=== PATIENT | male | born 1960 | race Caucasian/White ===

== ENCOUNTER 2018-11-19 07:15 | Inpatient (IN) ==
[2018-11-19 08:08] LABS: BASO# 0.01 X1000 (0.0-0.2); BASO% 0.1 % (0.0-0.8); EOS# 0.02 X1000 (0.0-0.7); EOS% 0.2 % (0.0-10.0); HEMATOCRIT 41.1 % (42.0-52.0); HEMOGLOBIN 14.2 g/dL (14.0-18.0); IMM GRAN# 0.03 X1000 (0.0-0.04); IMM GRAN% 0.2 % (0.0-0.5); LYMPH# 1.27 X1000 (1.2-3.4); LYMPH% 9.6 % (20.5-51.1); MCH 29.4 PG (27-31); MCHC 34.5 g/dL (33-37); MCV 85.1 FL (81-99); MONO# 1.67 X1000 (0.11-0.59); MONO% 12.6 % (1.7-9.3); MPV 11.4 FL (7.4-10.4); NEUT# 10.22 X1000 (1.4-6.5); NEUT% 77.3 % (42.2-75.2); PLT 182 X1000 (130-400); RBC 4.83 XMIL (4.7-6.1); RDW 12.6 % (11.5-14.5); WBC 13.22 X1000 (4.8-10.8)
[2018-11-19 08:29] LABS: BILIRUBIN URINE NEGATIVE (NEGATIVE); BLOOD URINE NEGATIVE (NEGATIVE); CLARITY CLEAR (CLEAR); COLOR YELLOW; GLUCOSE URINE NEGATIVE (NEGATIVE); KETONE URINE NEGATIVE (NEGATIVE); LEUKOCYTES URINE NEGATIVE (NEGATIVE); NITRITE URINE NEGATIVE (NEGATIVE); PH URINE 6.5; PROTEIN URINE NEGATIVE (NEGATIVE); URINE SOURCE CLEAN CATCH; UROBILINOGEN URINE NORMAL
[2018-11-19 08:30] LABS: URINE BACTERIA 1+ /HFP; URINE EPITHELIAL CELLS <10 /HPF (<10); URINE RBC <10 /HPF (<10); URINE WBC <10 /HPF (<10)
[2018-11-19 08:35] LABS: AGAP 12; ALBUMIN 4.1 g/dL (3.5-5.0); ALKALINE PHOSPHATASE 69 U/L (32-122); AMYLASE 78 U/L (20-200); BUN 12 mg/dL (8-22); CALCIUM 9.2 mg/dL (8.8-10.2); CHLORIDE 102 mmol/L (98-107); COSMO 275; ESTIMATED GFR > 60; GLUCOSE 117 mg/dL (70-104); GOT 17 U/L (10-34); GPT 18 U/L (10-44); LIPASE 43 U/L (13-60); POTASSIUM 3.8 mmol/L (3.5-5.1); SODIUM 137 mmol/L (136-145); TCO2 24 mmol/L (25-35); TOTAL PROTEIN 7.3 g/dL (6.3-8.3)
--- NOTE | 2018-11-19 10:20 | Diag Imaging Result Doc PS360 ---
EXAM: CT ABD/PELVIS W/PO AND IV CON HISTORY: pain TECHNIQUE: Routine with IV and oral contrast. COMPARISON: None. FINDINGS: The lung bases show atelectasis or scarring. No effusions. Small hiatal hernia. Within the mid descending colon there is circumferential wall thickening and pericolonic inflammatory change compatible with acute diverticulitis or colon cancer with microperforation. No abscess. No free fluid within the abdomen or pelvis. There is diffuse colonic diverticulosis and moderate constipation. No small bowel distention. No free air. The appendix is surgically absent. The liver, spleen, pancreas, kidneys, and adrenal glands are unremarkable. No calcified gallstones. The prostate gland is enlarged measuring 4.9 cm transverse diameter. There are bilateral fat-containing inguinal hernias. Musculoskeletal structures are unremarkable. IMPRESSION: 1.Acute descending diverticulitis versus colon carcinoma with microperforation. No abscess. Recommend follow-up colonoscopy. 2.Diverticulosis and constipation. 3.Enlarged prostate. 4.Bilateral fat-containing hernias. This exam was performed using automated exposure control, adjustment of mA or kV according to patient size, and/or use of iterative reconstruction technique. Electronically signed by Roz Gonzalez 11/19/2018 10:17 AM
--- NOTE | 2018-11-19 11:14 | PROVIDER DOCUMENTATION ---
This chart was entered by Kiana Chiang Scribe, acting as scribe for Pola Neil MD. HPI-Abdominal Pain/GI Problem - General Chief Complaint: Abdominal Pain Stated Complaint: ABD PAIN Time Seen by Provider: 11/19/18 08:01 Source: patient Allergies/Adverse Reactions: Patient Allergies Allergy/AdvReac Type Severity Reaction Status Date / Time No Known Allergies Allergy Verified 11/19/18 07:26 Home Medications: Home Medication List Medication Instructions Recorded Confirmed Last Taken Type ATORVAstatin [Lipitor] 10 mg PO DAILY 11/19/18 11/19/18 Unknown History Fluticasone Propionate 11/19/18 Unknown History Glucosamine/D3/Boswellia Donna 2 each PO DAILY 11/19/18 11/19/18 Unknown History [Osteo Bi-Flex Tablet] Levothyroxine [Synthroid] 88 microgm PO DAILY 11/19/18 11/19/18 Unknown History Lisinopril/Hydrochlorothiazide 1 each PO DAILY 11/19/18 11/19/18 Unknown History [Lisinopril-Hctz 10-12.5 mg Tab] - History of Present Illness-ABD Nature of Presenting Problems: Patient is a 58 year old male who presents to the ED with LLQ abdominal pain. Patient states pain has been present for 2 days. Patient denies nausea, vomiting and diarrhea. Patient states history of diverticulitis. Abdominal Pain Onset Location: reports: LLQ Pain Radiation: reports: no radiation Quality of Pain: reports: aching Severity in ED: reports: mild Onset/Duration: reports: 2 days ago Timing: reports: still present Activities at Onset: reports: light activity Modifying Factors: improves with: nothing Associated Symptoms: reports: denies symptoms Last BM: unsure Dark Stools Present?: reports: none noticed Rectal Bleeding: reports: none Rectal Pain: reports: none Emesis Description: reports: none Bruising or Bleeding Gums?: No Similar Symptoms Previously?: Yes (present for 2 days) Recently seen or treated by another doctor?: No Review of Systems - Adult - REVIEW OF SYSTEMS - ADULT Constitutional: reports: no symptoms reported Eyes: reports: no symptoms reported Ears, Nose, Mouth & Throat: reports: no symptoms reported Cardiovascular: reports: no symptoms reported Respiratory: reports: no symptoms reported Gastrointestinal: reports: abdominal pain (LLQ). denies: diarrhea, nausea, vomiting Genitourinary: reports: no symptoms reported Musculoskeletal: reports: no symptoms reported Integumentary: reports: no symptoms reported Neurological: reports: no symptoms reported Psychiatric: reports: no symptoms reported Endocrine: reports: no symptoms reported Hematologic/Lymphatic: reports: no symptoms reported Allergic/Immunologic: reports: no symptoms reported All Other Systems: Reviewed and Negative Past History - Adult - PAST MEDICAL HISTORY-ADULT Review of Records: reports: Nursing Assessment Review, Medications Reviewed, Social history reviewed & non-contributory. Major Childhood Illnesses: reports: denies history Cardiovascular: reports: HTN, hyperlipidemia Respiratory: reports: denies history Gastrointestinal: reports: other (diverticulitis) Obstetrical/Gynecological: reports: denies history Genitourinary: reports: denies history Musculoskeletal: reports: denies history Neurological: reports: denies history Psychiatric: reports: denies history Endocrine/Immune: reports: thyroid disorder Other Conditions: reports: denies history - PRIOR SURGERIES/PROCEDURES Surgical/Procedure History: reports: reviewed, not pertinent, appendectomy, tonsillectomy - IMMUNIZATION STATUS Childhood Immunizations: See Nurse Assessment Flu Vaccine: See Nurse Assessment - FAMILY HISTORY Family History: reviewed, not pertinent - SOCIAL HISTORY Smoking: denies Substance Use: denies Physical Exam-General - PHYSICAL EXAM-ADULT Initial Vital Signs Reviewed: Yes - CONSTITUTIONAL General Appearance: alert, no apparent distress - HEAD, EARS, NOSE, MOUTH & THROAT HENMT: normal ENT inspection - NECK Neck: normal inspection - RESPIRATORY Respiratory: chest non-tender, lungs clear, normal breath sounds - CARDIOVASCULAR Cardiovascular: normal peripheral pulses, regular rate, rhythm - GASTROINTESTINAL (ABDOMEN) Abdominal Exam: normal bowel sounds, soft, tenderness (LLQ) - MUSCULOSKELETAL Back Exam: normal inspection, no CVA tenderness, no vertebral tenderness Extremity: non-tender, normal inspection - SKIN Integumentary: normal color, normal turgor, warm/dry - NEUROLOGIC Neurologic: grossly normal - PSYCHIATRIC Psych/Mental Status: normal mood/affect, oriented x 3 Progress - PLAN OF CARE/RESULTS Progress/Plan/Lab Results: Vital Signs - 8 hr 11/19/18 07:21 Temperature 99.0 F Pulse Rate 74 Respiratory Rate 18 Blood Pressure 131/61 O2 Sat by Pulse Oximetry 97 Laboratory Results - last 24 hr 11/19/18 11/19/18 11/19/18 07:45 07:45 08:05 WBC 13.22 H RBC 4.83 Hgb 14.2 Hct 41.1 L MCV 85.1 MCH 29.4 MCHC 34.5 RDW Std Deviation 12.6 Plt Count 182 MPV 11.4 H Immature Gran % (Auto) 0.2 Neut % (Auto) 77.3 H Lymph % (Auto) 9.6 L [place] % (Auto) 12.6 H Eos % (Auto) 0.2 Baso % (Auto) 0.1 Immature Gran # (Auto) 0.03 Neut # (Auto) 10.22 H Lymph # (Auto) 1.27 [place] # (Auto) 1.67 H Eos # (Auto) 0.02 Baso # (Auto) 0.01 Sodium 137 Potassium 3.8 Chloride 102 Carbon Dioxide 24 L Anion Gap 12 BUN 12 Creatinine 1.0 Estimated GFR/1.73 m2 > 60 BUN/Creatinine Ratio 12 Glucose 117 H Calculated Osmolality 275 Calcium 9.2 Total Bilirubin 1.00 AST 17 ALT 18 Alkaline Phosphatase 69 Total Protein 7.3 Albumin 4.1 Globulin 3.0 Albumin/Globulin Ratio 1.0 Amylase 78 Lipase 43 Urine Source CLEAN CATCH Urine Color YELLOW Urine Clarity CLEAR Urine pH 6.5 Ur Specific [place] 1.010 Urine Protein NEGATIVE Urine Ketones NEGATIVE Urine Blood NEGATIVE Urine Nitrite NEGATIVE Urine Bilirubin NEGATIVE Urine Urobilinogen NORMAL Urine Microscopic RBC <10 Urine WBC NEGATIVE Urine Microscopic WBC <10 Ur Epithelial Cells <10 Urine Bacteria 1+ Urine Glucose NEGATIVE Orders Category Date Time Status Saline Loc DIRECTED Care 11/19/18 07:51 Active NPO Diet 11/19/18 07:[address] ABD/PELVIS W/PO AND IV CON [CT] Stat Exams 11/19/18 08:06 Ordered AMYLASE [CHEM] Stat Lab 11/19/18 07:45 Completed CBC WITH ELECTRONIC DIFF [HEME] Stat Lab 11/19/18 07:45 Completed COMPREHENSIVE METABOLIC PANEL [CHEM] Stat Lab 11/19/18 07:45 Completed LIPASE [CHEM] Stat Lab 11/19/18 07:[address] W/POSS RFLX CULT [URINALYSIS] Stat Lab 11/19/18 08:05 Completed Result Diagrams: 11/19/18 07:45 11/19/18 07:45 - CT/MRI 1 CT Study: Abdomen, Pelvis Impression: See EMR Report (EXAM: CT ABD/PELVIS W/PO AND IV CON HISTORY: pain TECHNIQUE: Routine with IV and oral contrast. COMPARISON: None. FINDINGS : The lung bases show atelectasis or scarring. No effusions. Small hiatal hernia. Within the mid descending colon there is circumferential wall thickening and pericolonic inflammatory change compatible with acute diverticulitis or colon cancer with microperforation. No abscess. No free fluid within the abdomen or pelvis. There is diffuse colonic diverticulosis and moderate constipation. No small bowel distention. No free air. The appendix is surgically absent. The liver, spleen, pancreas, kidneys, and adrenal glands are unremarkable. No calcified gallstones. The prostate gland is enlarged measuring 4.9 cm transverse diameter. There are bilateral fat-containing inguinal hernias. Musculoskeletal structures are unremarkable. IMPRESSION : 1.Acute descending diverticulitis versus colon carcinoma with microperforation. No abscess. Recommend follow-up colonoscopy. 2.Diverticulosis and constipation. 3.Enlarged prostate. 4.Bilateral fat-containing hernias. This exam was performed using automated exposure control, adjustment of mA or kV according to patient size, and/or use of iterative reconstruction technique. Electronically signed by Roz Gonzalez 11/19/2018 10:17 AM 11/19/18 1017 Interpreting Physician: Roz Gonzalez MD Dictated Date/Time: 11/19/18 1008 cc: Pola Neil MD; Katiuska Antoine MD) - CONSULTS/PCP/HOSPITALIST Notification #1 *Consult/PCP/Hospitalist*: Dr. Vides Time Discussed: 11:08 Reason/Comments: Dr. Neil consulted with Dr. Vides about patient Consult Disposition: other (admit to hospitalist and she will consult.) #2 Consult: Dr. Yang Time Discussed: 11:11 Reason/Comments: Dr. Neil consulted with Dr. Yang about patient. Consult Disposition: Will see in ED, Admit Departure - Departure Date of Disposition Decision: 11/19/18 Time of Disposition Decision: 11:11 DIAGNOSIS: Diverticulitis Disposition: ADMITTED INPATIENT 09 Certified Medical Emergency: Emergent Condition: Stable Referrals and Follow-Ups: Katiuska Antoine MD [Primary Care Provider] - - Critical Care Note This patient required my direct & personal management of CC.: No Attestation - Physician/ KELLY Attestation The physician spent face to face time with patient:: Yes Advanced Practice Provider documentation review:: Supervising physician onsite and consulted in the evaluation and care of this patient. The physician did have a face to face encounter with the patient. This chart was documented by the indicated scribe, (Kiana Chiang, Manuel) and accurately reflects the services I performed and decisions made by me, Pola Neil MD, as attested by the provider's signature.
[2018-11-19] MEDS ORDERED: NS 1,000 ML ONE (12:08)
[2018-11-19] MEDS: PROTONIX IV SCH (12:20)
[2018-11-19] MEDS: NS 1,000 ML IV SCH ×2 (12:20→23:55)
[2018-11-19] MEDS: SODIUM CHLORIDE 0.9% INJ SCH (12:20)
[2018-11-19] MEDS: FLAGYL 500 MG/NS 500 MG/100 ML IVPB IV SCH ×3 (12:22→23:55)
[2018-11-19] MEDS: ZOSYN 3.375 GM in NS 50 ML IV SCH ×2 (12:22→17:08)
[2018-11-19] MEDS ORDERED: ZOFRAN IV PRN (12:23)
[2018-11-19] MEDS ORDERED: MORPHINE IV PRN (12:26)
--- NOTE | 2018-11-19 12:54 | HISTORY AND PHYSICAL ---
CHIEF COMPLAINT: Left lower quadrant pain x2 days. HISTORY OF PRESENT ILLNESS: This is a 58-year-old gentleman with a history of diverticulosis, hypertension, and hypothyroid. He presents to the emergency room complaining of 2 days of left lower quadrant pain. He describes this as an aching, crampy-type pain that exacerbates with any movement, and it does relieve somewhat with sitting still. He denied any nausea, vomiting, or diarrhea. He does state he has a history of diverticulitis and this does feel like his prior episode which was about 15 years ago. He denied any fevers or chills. CT of the abdomen and pelvis was performed which revealed an acute descending diverticulitis versus colon carcinoma with microperforation. No abscess. Recommend follow-up colonoscopy, as well as diverticulosis and constipation. PAST MEDICAL HISTORY: Diverticulitis, diverticulosis, hypothyroid, and hypertension. PAST SURGICAL HISTORY: Appendectomy and tonsillectomy. SOCIAL HISTORY: He is and lives with his . He denies any alcohol, tobacco, or illicit drug use. ALLERGIES: No known drug allergies. HOME MEDICATIONS: 1. Lisinopril. 2. Hydrochlorothiazide. 3. Levothyroxine. 4. Flonase. 5. Atorvastatin. REVIEW OF SYSTEMS: Review of systems is discussed with the patient with pertinent positives stated in the HPI. He denied any syncope, dizziness, chest pain, palpitations, any shortness of breath, cough, any nausea, vomiting, diarrhea, constipation, black or bloody vomitus or stools, hematuria, dysuria, frequency, urgency. PHYSICAL EXAMINATION: GENERAL: This is a 58-year-old gentleman who is sitting up in the bed in the ER in no distress. VITAL SIGNS: Blood pressure is 114/74 with a heart rate of 61, respirations are 18, temperature is 98.1. His temperature was 99 on arrival to the ER, O2 sats are 96% and 98% on room air. EYES: Pupils are equal, round, react to light. EOMs are intact. Sclerae are anicteric. HEENT: Head is normocephalic, atraumatic. Mucous membranes are moist. NECK: Supple with trachea midline. CARDIOVASCULAR: Regular rate and rhythm. S1, S2 appreciated. He has no lower extremity edema with peripheral pulses palpable x4 extremities. PULMONARY: Breath sounds are clear with no increased work of breathing noted. GASTROINTESTINAL: Abdomen is soft. He has some left lower quadrant tenderness. He has hyperactive bowel sounds. He is nondistended. GENITOURINARY: He has no CVA nor suprapubic tenderness. SKIN: Warm and dry with good turgor. NEUROLOGIC: He is alert and oriented x3. LABORATORY DATA: WBC is 13.2 with hemoglobin 14.2, hematocrit 41.1, and platelets of 182,000. Sodium is 137, potassium 3.8. BUN 12, creatinine 1 with a glucose of 117. Urinalysis is essentially negative. CT scan of the abdomen and pelvis with p.o. and IV contrast reveals prostate enlarged at 4.9 cm, transverse; bilateral fat-containing inguinal hernias; acute descending diverticulitis versus colon cancer with microperforation. No abscess. Diverticulosis and constipation. ASSESSMENT AND PLAN: 1. Diverticulitis. 2. Possible colon carcinoma with microperforation. 3. Constipation. 4. Hypertension. 5. Hypothyroid. 6. Enlarged prostate. PLAN: The patient will be admitted to the hospital. He will be transferred to [facility] for GI following. He will remain n.p.o. We will give antibiotic coverage of Flagyl and Zosyn. We will give IV Protonix. We will give IV hydration with morphine for pain and Zofran for nausea. We will check a CBC and CMP in the morning. Further treatments pending hospital course. Dictated by SAKSHI Paz for Mauri Yang MD This chart was documented by, SAKSHI Paz and accurately reflects the services performed, treatment plan and medical decisions as attested by the providers signature Mauri Yang MD. cc: SAKSHI Paz MD
--- NOTE | 2018-11-19 14:31 | HISTORY AND PHYSICAL ---
ADDENDUM: I saw the patient [id number] and agree with the assessment and plan of my nurse practitioner, Alice Yanes. This is a 58-year-old gentleman who has history of diverticulitis 10 years ago. He presented to the emergency department with a 2-day history of left lower quadrant abdominal pain. He had a CT of the abdomen and pelvis here at the hospital and was found to have acute descending diverticulitis versus colon carcinoma with microperforation. We will, therefore, admit the patient to the hospital for further care. He will be started on IV Zosyn along with Flagyl and will obtain a GI consultation with Dr. Vides who has already been notified. Because of the patient's condition, he will be transferred across [facility] to [facility] for inpatient treatment. cc: Mauri Yang MD
--- NOTE | 2018-11-19 21:27 | GENERAL SURGERY CONSULTATION ---
DATE: 11/19/2018 REQUESTING PHYSICIAN: Hospitalist service. REASON FOR CONSULTATION: Consult concerning diverticulitis. HISTORY OF PRESENT ILLNESS: A 58-year-old male with a history of diverticulosis, hypertension, hypothyroidism, presenting with emergency department 2-day history of left lower quadrant pain described as aching, cramping pain. He was seen in the emergency department, had a CT scan that showed diverticulitis with perforation. He had previous episode 10 the 15 years ago had a previous colonoscopy 8 years ago with no other pathology. Patient seems to be doing better now but does report some left lower quadrant pains persisting. PAST MEDICAL HISTORY: Includes diverticulosis, history of diverticulitis, hypothyroidism, hypertension. PAST SURGICAL HISTORY: Includes appendectomy, tonsillectomy. SOCIAL HISTORY: Denies any alcohol, tobacco or illicit drugs. ALLERGIES: None. HOME MEDICATIONS: Full list reviewed. FAMILY HISTORY: Reviewed with patient noncontributory. REVIEW OF SYSTEMS: A full 10 point review of systems obtained negative as specified in HPI. PHYSICAL EXAM: Vital Signs: The patient is currently afebrile. His vital signs stable. General: No acute distress. Alert, interactive, male, looks stated age. HEENT: Normocephalic, atraumatic. Pupils equal, round, reactive to light. Mucous membranes moist. Oropharynx benign. Neck: Supple, trachea midline. Cardiovascular: Regular rate and rhythm. Lungs: Grossly clear. Abdomen: Soft, tender palpation of left lower quadrant, no peritoneal signs. Extremities: Moves all extremities. Neurologic: Grossly intact. Skin: No signs of jaundice. Vascular: All extremities perfused. LABORATORY: White blood cell count 13, hematocrit 41, platelet count 182,000, remainder of labs reviewed. CT scan independently reviewed and radiology report reviewed. He does have a microperforation with thickened colon. No discrete abscess noted at this time. ASSESSMENT AND PLAN: A 58-year-old with recurrent diverticulitis with perforation. Recurrent diverticulitis with perforation. At this time will treat him with being NPO on IV antibiotics as done by the hospitalist service, he likely needs an outpatient colonoscopy at least 6 weeks to rule out the possibility of any kind of mass but at this time continue current IV antibiotics, will probably need a repeat CT scan in 48 hours to see if any kind a abscess develops but hopefully we can treat him nonoperatively with this management through this hospitalization. Given his recurrent episodes and his perforation he probably would benefit from elective outpatient surgery on this and discussed that with the patient. We will continue to monitor while he is in the hospital. cc: Jimbo Love MD
--- NOTE | 2018-11-19 23:29 | CONSULTATION ---
DATE OF CONSULTATION: 11/19/2018 REFERRING PHYSICIAN: Van Quinteros MD. PRIMARY CARE PROVIDER: Katiuska Antoine MD. PRIMARY SAW CLEANER: Jasen Sands MD. INDICATION FOR CONSULTATION: Acute diverticulitis with contained perforation. HISTORY OF PRESENT ILLNESS: The patient is a 58-year-old white male who is followed by Dr. Trujillo. He has a history of diverticulosis, hypertension and hypothyroidism. Approximately 10 years ago he had episode of acute diverticulitis. He reports that he has been doing well until approximately 2 days ago. He developed left lower quadrant pain and chills. He reports that it felt like a similar episode and he presented to the emergency room. CT scan in the emergency room reveals descending colon diverticulitis. There is evidence of a microperforation. Because of the thickening of the colon, there remains concern regarding the presence of carcinoma in the left lower quadrant. He was transferred to [facility] from [facility] for further evaluation and management. PAST MEDICAL HISTORY: 1. Diverticulitis. 2. Diverticulosis. 3. Hypothyroidism. 4. Hypertension. PAST SURGICAL HISTORY: 1. Appendectomy. 2. Tonsillectomy. 3. Colonoscopy. SOCIAL HISTORY: The patient is and lives with his . There is no history of alcohol, tobacco or recreational drug use. MEDICATION ALLERGIES: None. HOME MEDICATIONS: 1. Lisinopril. 2. Hydrochlorothiazide. 3. Levothyroxine. 4. Flonase. 5. Atorvastatin. REVIEW OF SYSTEMS: Remarkable for the information as noted above. PHYSICAL EXAMINATION: Vital Signs: His blood pressure is 121/82, pulse 75, respirations 16, temperature of 98.2 degrees. HEENT: Negative for jaundice. His oropharyngeal mucosal membrane is dry. Pulmonary: Her lungs are clear to auscultation with normal respiratory effort. Cardiovascular: Reveals regular rate and rhythm with no murmurs, gallops, or rubs. Abdomen: Soft with moderate left lower quadrant tenderness. There is no rebound or guarding. Extremities: Bilaterally are negative for cyanosis, clubbing or edema. OBJECTIVE DATA: Reveals a hemoglobin of 14.2 with hematocrit of 41.1 and a white count of 13.22. He has 182,000 platelets. Sodium is 137, potassium 3.8, chloride 102, CO2 24, BUN 12, creatinine 1.0 with a glucose of 117. Calcium is 9.2, total bilirubin 1.0, AST 17, ALT 18, alkaline phosphatase 69, total protein 7.3 and albumin 4.1. Amylase is 78, lipase is 43. His urinalysis is essentially unremarkable. IMPRESSION: 1. Diverticulitis with bowel perforation. 2. Abnormal CT with possible descending colon malignancy. RECOMMENDATION: 1. Given that the patient has acute bowel perforation, I agree with Dr. Love's recommendations for IV antibiotics including Zosyn and Flagyl. 2. He will need outpatient colonoscopy in approximately 6 weeks to assess his left colon. This will allow for the area to be fully inspected in the absence of inflammation. We will defer to Dr. Jasen Sands, his primary retail assistant store manager. 3. I agree with Prilosec 40 mg IV q.12 hours to help reduce gastric secretions. 4. The patient states that he is extremely thirsty. I have prescribed ice chips in limited amount. He is aware that if he has nausea he will be made NPO again. 5. Additional recommendations to follow based on his clinical course. cc: Jasen Sands MD
[2018-11-20] MEDS: ZOSYN 3.375 GM in NS 50 ML IV SCH ×4 (03:35→20:52)
[2018-11-20] MEDS: FLAGYL 500 MG/NS 500 MG/100 ML IVPB IV SCH ×3 (06:07→18:12)
[2018-11-20 07:53] LABS: BASO# 0.01 X1000 (0.0-0.2); BASO% 0.1 % (0.0-0.8); EOS# 0.07 X1000 (0.0-0.7); HEMATOCRIT 39.4 % (42.0-52.0); HEMOGLOBIN 13.6 g/dL (14.0-18.0); IMM GRAN# 0.02 X1000 (0.0-0.04); IMM GRAN% 0.3 % (0.0-0.5); LYMPH# 0.96 X1000 (1.2-3.4); LYMPH% 13.4 % (20.5-51.1); MCH 30.1 PG (27-31); MCHC 34.5 g/dL (33-37); MCV 87.2 FL (81-99); MONO# 0.71 X1000 (0.11-0.59); MONO% 9.9 % (1.7-9.3); MPV 11.3 FL (7.4-10.4); NEUT# 5.41 X1000 (1.4-6.5); NEUT% 75.3 % (42.2-75.2); PLT 162 X1000 (130-400); RBC 4.52 XMIL (4.7-6.1); RDW 12.7 % (11.5-14.5); WBC 7.18 X1000 (4.8-10.8)
[2018-11-20 08:10] LABS: AGAP 13; ALB/GLOB RATIO 1.6; ALKALINE PHOSPHATASE 61 U/L (32-122); BUN 15 mg/dL (8-22); CALCIUM 8.4 mg/dL (8.8-10.2); CHLORIDE 102 mmol/L (98-107); COSMO 276; CREATININE 0.9 mg/dL (0.7-1.2); ESTIMATED GFR > 60; GLUCOSE 92 mg/dL (70-104); GOT 14 U/L (10-34); GPT 17 U/L (10-44); POTASSIUM 3.8 mmol/L (3.5-5.1); SODIUM 138 mmol/L (136-145); TCO2 23 mmol/L (25-35); TOTAL BILIRUBIN 0.95 mg/dL (0.20-1.00); TOTAL PROTEIN 6.5 g/dL (6.3-8.3)
--- NOTE | 2018-11-20 10:09 | GENERAL SURGERY PROGRESS NOTE ---
DATE: 11/20/2018 SUBJECTIVE: Patient seems to be doing well. His pain is less. OBJECTIVE: Vital Signs: Patient is currently afebrile. His vital signs are stable. General Exam: No acute distress. HEENT: Normocephalic, atraumatic. Pupils equal, round, reactive to light. Mucous membranes moist. Oropharynx benign. Neck: Supple. Trachea midline. Cardiovascular: Regular rate and rhythm. Lungs: Grossly clear. Abdomen: Soft. Less tender and less distended. No peritoneal signs. Extremities: Moves all extremities. Neurologic: Grossly intact. Skin: No signs of jaundice. Vascular: All extremities perfused. LABORATORY: None this morning as of yet. ASSESSMENT AND PLAN: A 58 year old with diverticulitis with micro perforation. 1. Perforated Diverticulitis At this time, we will advance the patient to clear liquid diet. We will plan on likely getting a CT scan tomorrow, but otherwise continue current treatment. cc: Jimbo Love MD MTDD
[2018-11-20] MEDS ORDERED: FLONASE NAS PRN (11:08)
[2018-11-20] MEDS: NS 1,000 ML IV SCH (12:03)
[2018-11-20] MEDS: LIPITOR PO SCH (12:04)
[2018-11-20] MEDS: GLUCOSAMINE 500 MG/CHONDROITIN 400 MG PO SCH (12:04)
[2018-11-20] MEDS: PRINZIDE 10/12.5MG PO SCH (12:04)
[2018-11-20] MEDS: SODIUM CHLORIDE 0.9% INJ SCH (12:05)
[2018-11-20] MEDS: PROTONIX IV SCH (12:05)
--- NOTE | 2018-11-20 12:54 | PROGRESS NOTE ---
DATE: 11/20/2018 SUBJECTIVE: This patient is lying comfortably in bed. His abdomen is soft. Nondistended. Positive bowel sounds. Surgery Department evaluated this patient as well as Gastroenterology Department. He has been placed on a liquid diet, and I will put this patient back on his home medications. OBJECTIVE: Vital Signs: Temperature 98.1, pulse 74, respiratory rate 15, blood pressure 107/63. Oxygen saturation 98% on room air. HEENT: Head normocephalic. No trauma. PERRLA. Neck supple. No JVD. No masses. Central trachea. Chest clear to auscultation. No wheezing. No rales. Abdomen soft, nontender, nondistended. No hepatosplenomegaly. Extremities: No edema. No clubbing. No cyanosis. Neurologic: The patient is alert and oriented x3. No focal deficits. LABORATORY: WBC 7.1, hemoglobin 13.6, hematocrit 39.4, platelet 162,000. Sodium 138, potassium 3.8, chloride 102, bicarbonate 23. BUN 15, creatinine 0.9, glucose 92. Calcium 8.4. Albumin 4. ASSESSMENT AND PLAN: 1. Diverticulitis with bowel microperforation. Surgery Department and Gastroenterology Department are following this patient closely. Today, we advanced the diet to a liquid diet. I have placed this patient back on his home medications. He is not complaining of pain, passing gas, positive bowel sounds. Tomorrow, hopefully, we will get a CT scan of the abdomen and pelvis again. We will monitor. Continue with IV antibiotics. 2. Abnormal CT scan with possible descending colon malignancy. As per the patient, he was scoped like [address] Sands. For now, we will continue to monitor. We will continue with antibiotics. Likely this patient will need to be scoped again. 3. Hypertension. Continue home medication. 4. Hypothyroidism. Continue home medication. 5. Benign prostatic hypertrophy, aware. cc: Van Unger MD
[2018-11-21] MEDS: NS 1,000 ML IV SCH ×2 (00:23→10:50)
[2018-11-21] MEDS: FLAGYL 500 MG/NS 500 MG/100 ML IVPB IV SCH ×4 (00:23→18:28)
[2018-11-21] MEDS: ZOSYN 3.375 GM in NS 50 ML IV SCH ×3 (04:55→14:51)
[2018-11-21] MEDS: SYNTHROID PO SCH (06:14)
--- NOTE | 2018-11-21 07:44 | GENERAL SURGERY PROGRESS NOTE ---
DATE: 11/21/2018 SUBJECTIVE: The patient is doing well, had a bowel movement. OBJECTIVE: Vital Signs: The patient is currently afebrile. His vital signs are stable. General Examination: No acute distress. Cardiovascular: Regular rate and rhythm. Lungs: Grossly clear. Abdomen: Soft, nontender, nondistended when compared to previous days. Extremities: Moves all extremities. Neurologic: Grossly intact. Skin: No signs of jaundice. Vascular: All extremities perfused. Laboratory: Reviewed from yesterday but none this morning. ASSESSMENT AND PLAN: A 58-year-old with diverticulitis with microperforation. Diverticulitis with microperforation. At this time, we will get a CT scan to follow up on any kind of changes if there is an abscess formation but otherwise continue current treatment. cc: Jimbo Love MD
[2018-11-21 07:45] LABS: BASO# 0.01 X1000 (0.0-0.2); BASO% 0.2 % (0.0-0.8); EOS# 0.07 X1000 (0.0-0.7); EOS% 1.2 % (0.0-10.0); HEMATOCRIT 36.7 % (42.0-52.0); HEMOGLOBIN 12.4 g/dL (14.0-18.0); IMM GRAN# 0.02 X1000 (0.0-0.04); IMM GRAN% 0.3 % (0.0-0.5); LYMPH# 1.04 X1000 (1.2-3.4); LYMPH% 18.1 % (20.5-51.1); MCH 29.5 PG (27-31); MCHC 33.8 g/dL (33-37); MCV 87.2 FL (81-99); MONO# 0.54 X1000 (0.11-0.59); MONO% 9.4 % (1.7-9.3); MPV 10.9 FL (7.4-10.4); NEUT# 4.07 X1000 (1.4-6.5); NEUT% 70.8 % (42.2-75.2); PLT 159 X1000 (130-400); RBC 4.21 XMIL (4.7-6.1); RDW 12.5 % (11.5-14.5); WBC 5.75 X1000 (4.8-10.8)
[2018-11-21 08:18] LABS: AGAP 11; BUN 8 mg/dL (8-22); CALCIUM 7.7 mg/dL (8.8-10.2); CHLORIDE 105 mmol/L (98-107); COSMO 278; CREATININE 0.9 mg/dL (0.7-1.2); ESTIMATED GFR > 60; GLUCOSE 100 mg/dL (70-104); POTASSIUM 3.9 mmol/L (3.5-5.1); SODIUM 140 mmol/L (136-145); TCO2 24 mmol/L (25-35)
[2018-11-21] MEDS ORDERED: SYNTHROID PO SCH (09:00)
[2018-11-21] MEDS ORDERED: PRINZIDE 10/12.5MG PO SCH (09:00)
[2018-11-21] MEDS ORDERED: GLUCOSAMINE 500 MG/CHONDROITIN 400 MG PO SCH (09:00)
[2018-11-21] MEDS: PRINZIDE 10/12.5MG PO SCH (10:50)
[2018-11-21] MEDS: LIPITOR PO SCH (10:50)
[2018-11-21] MEDS: GLUCOSAMINE 500 MG/CHONDROITIN 400 MG PO SCH (10:50)
--- NOTE | 2018-11-21 11:17 | Diag Imaging Result Doc PS360 ---
EXAM: CT ABD/PELVIS W/PO AND IV CON - 11/21/2018 HISTORY: follow up diverticulitis TECHNIQUE: CT abdomen/pelvis with oral and intravenous contrast COMPARISON: 11/19/2018 FINDINGS: There are no acute changes identified in the liver, spleen, adrenal glands, or pancreas. There are no calcified gallstones or pericholecystic inflammation identified. The bilateral kidneys enhance homogeneously except for stable small cyst at the upper pole left kidney. There is no hydronephrosis. There is mild perinephric scarring. There is no substantial adenopathy identified. There is no evidence of bowel obstruction. There is colonic diverticulosis. There are wall thickening and pericolic inflammation at the distal descending colon compatible with diverticulitis. Compared to the prior exam, the amount of paracolic formation has decreased. There is possibly minimal extraluminal gas in the inflamed area versus gas within the inflamed diverticulum. There is no discrete abscess identified. There is no free intraperitoneal air identified. IMPRESSION: Diverticulitis at distal descending colon. There has been interval decrease in associated paracolic inflammation compared to the prior exam. There is a questionable small amount of extraluminal gas in this area versus gas within inflamed diverticulum. There is no discrete abscess. There is no free intraperitoneal air. This exam was performed using automated exposure control, adjustment of mA or kV according to patient size, and/or use of iterative reconstruction technique. Electronically signed by Bharat Raymond 11/21/2018 11:14 AM
[2018-11-21] MEDS: PROTONIX IV SCH (13:03)
--- NOTE | 2018-11-21 15:29 | PROGRESS NOTE ---
DATE: 11/21/2018 SUBJECTIVE: This patient is lying comfortably in bed. He is not complaining of abdominal pain, but a little bit of soreness at the level of the periumbilical area. Positive bowel sounds. He had a bowel movement already. CT scan showed diverticulitis at the distal descending colon. There has been interval decrease in associated paracolic inflammation compared to prior exam. There is a questionable small amount of extraluminal gas in this area versus gas within the inflamed diverticulum. There is no discrete abscess. There is no free intraperitoneal air. OBJECTIVE: Vital Signs: Temperature 98.3 degrees, pulse 68, respiratory rate 16, blood pressure 111/73, and oxygen saturation 98 percent on room air. HEENT: Head normocephalic. No trauma. PERRLA. Neck: Supple. No JVD. No masses. Central trachea. Chest: Clear to auscultation. No wheezing. No rales. Abdomen: Soft. Mild discomfort to palpation at the level of the periumbilical area. No signs of peritoneal irritation. Positive bowel sounds. Extremities: No edema. No clubbing. No cyanosis. Neurological: The patient is alert and oriented x3. No focal deficits. LABORATORY: WBC 5.7, hemoglobin 12.4, hematocrit 36.7, and platelet 159,000. Sodium 140, potassium 3.9, chloride 105, bicarbonate 24, BUN 8, creatinine 0.9, glucose 100 and calcium 7.7. ASSESSMENT AND PLAN: 1. Diverticulitis with possible bowel and micro perforation. Surgery Department following this patient. The abdomen is soft. He is having bowel movements. He is tolerating p.o. CT scan showed diverticulitis at the distal descending colon. There has been interval decrease in associated paracolic inflammation compared to the prior exam. There is a questionable small amount of extraluminal gas in this area versus gas within inflamed diverticulum. There is no discrete abscess. There is no free intraperitoneal air. I think this patient is doing much better. Will follow recommendations. 2. Hypertension. Continue home medication. 3. Hypothyroidism. Continue with the same treatment. 4. BPH. Aware. cc: Van Unger MD
--- NOTE | 2018-11-21 19:27 | PROGRESS NOTE ---
DATE: 11/21/2018 SUBJECTIVE: The patient is resting comfortably in bed. He is tolerating his diet with minimal abdominal pain. PHYSICAL EXAMINATION: Vital Signs: His blood pressure is 107/63, pulse is 74, respirations 15, temp of 98.1. Exam: The remainder of his exam was deferred as the patient was eating. OBJECTIVE DATA: Reveals a hemoglobin of 13.6, with hematocrit of 39.4 and a white count of 7.18. He has 162,000 platelets. Sodium is 138, potassium 3.8, chloride 102, CO2 of 23, BUN 15, creatinine 0.9, with a glucose of 92. Calcium is 8.4, total bilirubin 0.95, AST 14, ALT 17, alkaline phosphatase 61, total protein 6.5 and albumin 4.0. RECOMMENDATIONS: 1. Continue current management. 2. Dr. Jasen Sands will return on Thursday to assume care. We will be available if there are additional questions or concerns over the weekend. cc: MD Katiuska Mcfadden MD Khurshid Yousuf, MD
[2018-11-21] MEDS: AUGMENTIN PO SCH (22:36)
[2018-11-22] MEDS: FLAGYL 500 MG/NS 500 MG/100 ML IVPB IV SCH ×3 (00:28→12:53)
[2018-11-22] MEDS: NS 1,000 ML IV SCH ×3 (02:33→08:24)
[2018-11-22 05:01] VITALS: BP 103/73
--- NOTE | 2018-11-22 06:03 | GENERAL SURGERY PROGRESS NOTE ---
DATE: 11/22/2018 SUBJECTIVE: The patient seems to be doing okay. He tolerated his regular diet. He tolerated transition over to p.o. antibiotics. His pain is much improved. OBJECTIVE: Vital Signs: The patient is currently afebrile. His vital signs are stable. General Examination: No acute distress. HEENT: Normocephalic, atraumatic. Pupils equal, round, reactive to light. Mucous membranes moist. Oropharynx benign. Neck: Supple. Trachea midline. Cardiovascular: Regular rate and rhythm. Lungs: Grossly clear. Abdomen: Soft. Really no tenderness to palpation at this time. Extremities: Moves all extremities. Neurologic: Grossly intact. Skin: No signs of jaundice. Vascular: All extremities perfused. Laboratory: None this morning. CT scan reviewed from yesterday and it shows improvement. ASSESSMENT AND PLAN: A 58-year-old with diverticulitis with microperforation. Diverticulitis. At this time, I think the patient is clinically improved. He is tolerating a regular diet. We will transition over to oral antibiotics. I think he can be discharged home today. I would like to see him my office in 1 to 2 weeks. He will need an outpatient colonoscopy in probably 5 to 6 weeks. At this point, I would probably entertain the possibility of a surgical resection of this area. cc: Jmibo Love MD
[2018-11-22] MEDS: SYNTHROID PO SCH (06:08)
[2018-11-22 07:39] LABS: HEMATOCRIT 37.2 % (42.0-52.0); HEMOGLOBIN 12.6 g/dL (14.0-18.0)
[2018-11-22 07:54] LABS: AGAP 9; BUN 6 mg/dL (8-22); CALCIUM 8.3 mg/dL (8.8-10.2); CHLORIDE 106 mmol/L (98-107); COSMO 277; CREATININE 0.9 mg/dL (0.7-1.2); ESTIMATED GFR > 60; GLUCOSE 98 mg/dL (70-104); POTASSIUM 3.7 mmol/L (3.5-5.1); SODIUM 140 mmol/L (136-145); TCO2 25 mmol/L (25-35)
[2018-11-22] MEDS: PRINZIDE 10/12.5MG PO SCH (08:23)
[2018-11-22] MEDS: AUGMENTIN PO SCH (08:23)
[2018-11-22] MEDS: GLUCOSAMINE 500 MG/CHONDROITIN 400 MG PO SCH (08:23)
[2018-11-22] MEDS: LIPITOR PO SCH (08:23)
[2018-11-22] MEDS: PROTONIX IV SCH (12:53)
--- NOTE | 2018-11-22 13:14 | PROGRESS NOTE ---
DATE: 11/22/2018 SUBJECTIVE: The patient states his abdominal pain has improved. He is tolerating a diet. OBJECTIVE: Vital Signs: Temperature 98.2 degrees, pulse 65, respirations 18, and blood pressure 103/73. General: Patient is awake and alert in no acute distress. Abdomen: Soft. Positive bowel sounds. Nontender with palpation. LABORATORY: Hematology: WBCs hemoglobin 12.6, hematocrit 37.2. Chemistry: Sodium 140, potassium 3.7, chloride 106, CO2 25, BUN 6, creatinine 0.9, and glucose 98. ASSESSMENT AND PLAN: 1. Diverticulitis with micro perforation. 2. Abdominal pain has improved. PLAN: Continue antibiotics. He will be discharged on antibiotics. He is recommended to follow up with Dr. Love in 1 to 2 weeks. Patient will need an outpatient colonoscopy in approximately 5 to 6 weeks. We will schedule as an outpatient. Patient may require surgical resection. Further plans will be made as needed. I have discussed this case with Dr. Sands. Dictated by SAKSHI Kimbrough for Jasen Sands MD cc: SAKSHI Mejia MD
--- NOTE | 2018-11-23 05:28 | DISCHARGE SUMMARY ---
ADMISSION DATE: 11/19/2018 DISCHARGE DATE: 11/22/2018 DISCHARGE DIAGNOSES: 1. Diverticulitis with possible bowel microperforation. 2. Hypertension. 3. Hypothyroidism. 4. Benign prostatic hypertrophy. HOSPITAL COURSE: A 58-year-old male with a past medical history of diverticulosis, hypertension, hypothyroidism presented to the emergency department with a chief complaint of left lower quadrant pain for 2 days. He was admitted on 11/19/2018. He described the pain as an aching crampy-type pain that exacerbates with any movement. It does relieve somewhat with sitting still. He denied nausea, vomiting, or diarrhea. He has a history of diverticulitis and apparently, he had his prior episode 15 years ago. No fever and no chills. CT scan of the abdomen and pelvis was performed, which revealed an acute descending diverticulitis versus colon mass with microperforation. No abscess. General Surgery was consulted, and they put this patient NPO. We started IV antibiotics, and they recommended to do an outpatient colonoscopy at least in 6 weeks to rule out any kind of mass, and they requested to repeat a CT scan in 48 hours to see if there is an abscess formation or any other problem. Given his recurrent episodes and his perforation, he probably would benefit from elective outpatient surgery, and that was discussed with the patient. Gastroenterology Department also evaluated this patient. They agreed with Surgery Department. They recommended to continue with Zosyn and Flagyl as well. We placed this patient also on PPIs, and he was NPO as well. This patient's pain was improving on a daily basis. A new CT of the abdomen was performed that showed diverticulitis at the distal descending colon, and there has been interval decrease in associated paracolic inflammation compared to the prior exam. There is a questionable small amount of extraluminal gas in this area versus gas with an inflamed diverticulum. There is no abscess, and there is no free intraperitoneal air. We have been advancing the diet slowly to the point that he was tolerating that without any pain. He was having also bowel movements. No fever, no chills. Vital signs stable. Today, he was completely asymptomatic. This is why we decided to discharge this patient with an active follow up by Gastroenterology Department. Also Dr. Love will evaluate this patient on 11/29/2018 at 1 p.m. At the moment of discharge, the patient was in a stable medical condition, tolerating p.o. and no pain. OBJECTIVE: Vital Signs: Temperature 98.2 degrees, pulse 65, respiratory rate 18, blood pressure 103/73, oxygen saturation 96 on room air. HEENT: Head normocephalic. No trauma. PERRLA. Neck: Supple. No JVD. No masses. Central trachea. Chest: Clear to auscultation. No wheezing. No rales. Abdomen: Soft, nontender, nondistended. No hepatosplenomegaly. Extremities: No edema. No clubbing. No cyanosis. Neurological: The patient is alert and oriented x3. No focal deficits. DISCHARGE MEDICATIONS: 1. Lisinopril/hydrochlorothiazide 10/12.5 mg p.o. daily. 2. Synthroid 88 mcg p.o. daily. 3. Osteo Bi-Flex tablets 2 each p.o. daily. 4. Fluticasone propionate 1 inhalation as needed. 5. Lipitor 10 mg p.o. daily. 6. Omeprazole 20 mg p.o. daily. 7. Flagyl 500 mg p.o. q.8 hours to complete 10 days. 8. Augmentin 875 mg p.o. b.i.d. to complete 10 days as well. TIME DISCHARGING THIS PATIENT: 35 minutes. cc: Van Unger MD
== END 2018-11-22 14:58 | disposition home or self-care (01) | DRG 392 ==
LOC: P.ED 07:15 → EDIPHOLD 12:57 → SUATTDRO 12:57 → 3N 14:44
PROVIDERS: ATTEND Internal Medicine
CPT/HCPCS: 74177; 80048; 80053; 81001; 82150; 83605; 83690; 85014; 85018; 85025; 96361; 96365; 96368; 99285; A9270; C9113; J2543; J7030; Q9967; S0030; S0164

== ENCOUNTER 2019-01-20 09:12 | Inpatient (IN) ==
[2019-01-17 09:18] LABS: BASO# 0.03 X1000 (0.0-0.2); BASO% 0.5 % (0.0-0.8); EOS# 0.08 X1000 (0.0-0.7); EOS% 1.3 % (0.0-10.0); HEMOGLOBIN 14.7 g/dL (14.0-18.0); IMM GRAN# 0.04 X1000 (0.0-0.04); IMM GRAN% 0.6 % (0.0-0.5); LYMPH# 1.25 X1000 (1.2-3.4); LYMPH% 20.3 % (20.5-51.1); MCH 29.6 PG (27-31); MCHC 34.2 g/dL (33-37); MCV 86.5 FL (81-99); MONO# 0.67 X1000 (0.11-0.59); MONO% 10.9 % (1.7-9.3); MPV 10.8 FL (7.4-10.4); NEUT# 4.09 X1000 (1.4-6.5); NEUT% 66.4 % (42.2-75.2); PLT 194 X1000 (130-400); RBC 4.97 XMIL (4.7-6.1); WBC 6.16 X1000 (4.8-10.8)
--- NOTE | 2019-01-17 09:41 | EKG Report ---
Test Performed on : 01/17/2019 08:49:03 AM Test Reason : PAT Blood Pressure : / mmHG Vent. Rate : 068 BPM Atrial Rate : 068 BPM P-R Int : 146 ms QRS Dur : 074 ms QT Int : 376 ms P-R-T Axes : 042 055 051 degrees QTc Int : 399 ms Normal sinus rhythm. with sinus arrhythmia. Normal ECG No previous ECGs available Unconfirmed Result
[2019-01-17 09:42] LABS: AGAP 9; BUN 17 mg/dL (8-22); CALCIUM 9.1 mg/dL (8.8-10.2); CHLORIDE 104 mmol/L (98-107); COSMO 283; ESTIMATED GFR > 60; GLUCOSE 102 mg/dL (70-104); POTASSIUM 4.5 mmol/L (3.5-5.1); SODIUM 141 mmol/L (136-145); TCO2 28 mmol/L (25-35)
[2019-01-20] MEDS ORDERED: LR 1,000 ML ONE ×2 (09:41→10:39)
[2019-01-20] MEDS ORDERED: ENTEREG ONE (09:41)
[2019-01-20] MEDS ORDERED: MEFOXIN 1 GM/D5W 2 GM/100 ML IVPB ONE (09:41)
[2019-01-20] MEDS ORDERED: NORCURON ONE (09:56)
[2019-01-20] MEDS ORDERED: QUELICIN (DOSE) ONE (09:56)
[2019-01-20] MEDS ORDERED: STERILE WATER INJ. ONE (09:56)
[2019-01-20] MEDS ORDERED: XYLOCAINE-MPF 2% ONE ×2 (09:56→13:03)
[2019-01-20] MEDS ORDERED: ROBINUL ONE (09:56)
[2019-01-20] MEDS ORDERED: DIPRIVAN 1% ONE (09:58)
[2019-01-20] MEDS ORDERED: FENTANYL ONE ×2 (09:58→13:47)
[2019-01-20] MEDS ORDERED: VERSED ONE (09:58)
[2019-01-20] MEDS ORDERED: LUBRIFRESH PM OPH OINTMENT ONE (10:06)
[2019-01-20] MEDS ORDERED: SODIUM CHLORIDE 0.9% 10 ML ONE ×2 (11:27→13:03)
[2019-01-20] MEDS ORDERED: EXPAREL 1.3% ONE (11:27)
[2019-01-20] MEDS ORDERED: MARCAINE 0.5% ONE (11:27)
[2019-01-20] MEDS ORDERED: DECADRON ONE (11:50)
[2019-01-20] MEDS ORDERED: ZOFRAN ONE (11:50)
[2019-01-20] MEDS ORDERED: NEOSTIGMINE ONE (12:58)
[2019-01-20] MEDS ORDERED: DILAUDID ONE (13:03)
[2019-01-20] MEDS ORDERED: EPHEDRINE ONE (13:30)
[2019-01-20 13:56] LABS: URINE SOURCE CATH
[2019-01-20 14:01] LABS: BILIRUBIN URINE NEGATIVE (NEGATIVE); BLOOD URINE NEGATIVE (NEGATIVE); COLOR YELLOW; GLUCOSE URINE NEGATIVE (NEGATIVE); KETONE URINE NEGATIVE (NEGATIVE); LEUKOCYTES URINE NEGATIVE (NEGATIVE); NITRITE URINE NEGATIVE (NEGATIVE); PH URINE 5.5; PROTEIN URINE NEGATIVE (NEGATIVE); SP GRAVITY URINE 1.016; TURBIDITY URINE CLEAR (CLEAR); UR EPITHELIAL CELLS <10 /HPF (<10); URINE BACTERIA NEGATIVE /HPF; URINE RBC <10 /HPF (<10); URINE WBC <10 /HPF (<10); UROBILINOGEN URINE NORMAL (NORMAL)
[2019-01-20] MEDS ORDERED: D5 1/2 NS + KCL 20 MEQ 1,000 ML ONE (15:13)
--- NOTE | 2019-01-20 16:04 | OPERATIVE NOTE ---
PROCEDURE DATE: 01/20/2019 PREOPERATIVE DIAGNOSIS: Recurrent complicated diverticulitis. POSTOPERATIVE DIAGNOSES: 1. Recurrent complicated diverticulitis. 2. Bilateral inguinal hernias. PROCEDURE: Laparoscopic robot assisted sigmoid resection with stapled end-to-end anastomosis (28 mm). SURGEON: Jimbo Love MD BOTTLE HOP: Silvia Ocasio MD. Dr. Ocasio assisted with the entirety of the case. His presence was crucial for the completion of the case. ANESTHESIA: General endotracheal. INTRAOPERATIVE FINDINGS: As dictated. COMPLICATIONS: None at the time of this dictation. ESTIMATED BLOOD LOSS: 50 mL. SPECIMEN REMOVED: Sigmoid colon. BRIEF HISTORY: A 58-year-old gentleman who had recurrent complicated diverticulitis, felt that he needed resection. He had undergone a colonoscopy that was essentially normal. It was felt that he would benefit from a sigmoid resection. The risks, benefits, and alternatives were discussed and documented in the chart. All questions answered. DESCRIPTION OF PROCEDURE: After informed consent was obtained, the patient was brought to the operative theatre, transferred to the operative table, and laid in supine position. General endotracheal anesthesia was then performed without complication and the patient was repositioned in lithotomy position. His abdomen was prepped and draped in sterile fashion. After the formal time-out, we turned our attention to the abdomen. We made our first trocar site using the Optiview technique just superior and lateral on the right side to the umbilicus and placed a 12 mm trocar there. Connected insufflation and pneumoperitoneum was achieved we then placed a trocar that was 8 mm in the anterior axillary line on the left side and one half the distance and superior on the abdomen that was also of 8 mm. We used these to take down adhesions from previous appendectomy and then placed a 3rd trocar, which was 12 mm, in the right lower quadrant. We then placed an management assistant port in the right upper quadrant. Using these, we docked the robot. I turned my attention to the robot console. We identified the sigmoid colon. It was redundant. There was one area that was inflamed and attached to the lateral sidewall. We elevated this, dissected out from the medial to lateral approach, found the branches to the inferior mesentery artery, and transected these with the vessel sealer. We mobilized along the white line of Toldt up to the splenic flexure to free up the colon. We dissected the mesentery to free it up. We used Firefly to find for the vascular supply was still preserved. We then used the robotic stapler to take down on the rectal side just right to the sacral promontory. We had also used the vessel sealer to take down the mesentery there, too. We did identify the left ureter and preserved it. We fired the stapler with good results. Again, it was then well-perfused area. We then made an incision in the left lower quadrant, placed a wound protector, eviscerated the redundant sigmoid colon, placed a pursestring stitch around the area that we felt was good for transection, transected it, placed a 28 anvil, and closed the pursestring. We did have to incorporate 2 diverticula in this area, but we incorporated into the pursestring stitch. We placed air tight wound protector, and then reinserted this area down into the pelvis. We then re-docked the robot. Using the EEA stapler, we brought the stapler up. There was a small tear in the serosa, which we repaired primarily. We then did an end-to-end anastomosis with the stapler with good results. We tested it under water there was no obvious leak. There were 2 intact donuts. We irrigated out the abdomen until the suction fluid was clear. There was very minimal contamination. We made sure that the orientation of colon was accurate with the taenia libera superior. We then closed the two 12 mm trocars with a Primitivo-Osiel and 0 Vicryl. We undocked the robot, released pneumoperitoneum, and closed the left lower quadrant with interrupted 0 Vicryl with multiple layers. We then closed the skin with Biosyn. The patient tolerated the procedure well and will be admitted and watched. cc: Jimbo Love MD
[2019-01-20] MEDS ORDERED: TYLENOL PR PRN (16:14)
[2019-01-20] MEDS ORDERED: ZOFRAN IV PRN ×2 (16:14→19:00)
[2019-01-20] MEDS ORDERED: D5 1/2 NS + KCL 20 MEQ 1,000 ML IV SCH (17:00)
[2019-01-20] MEDS: ULTRAM PO PRN ×2 (17:11→21:27)
[2019-01-20] MEDS: MEFOXIN 2 GM/NS 2 GM/50 ML IVPB IV SCH (18:35)
[2019-01-20] MEDS: OFIRMEV 1000 MG/ISOTONIC SOLN 1,000 MG/100 ML BOTTLE IV SCH (18:35)
[2019-01-20] MEDS: PERIDEX MT SCH (21:28)
[2019-01-20] MEDS: HEPARIN SUBQ SCH (21:28)
[2019-01-21] MEDS: OFIRMEV 1000 MG/ISOTONIC SOLN 1,000 MG/100 ML BOTTLE IV SCH ×3 (01:15→13:31)
[2019-01-21] MEDS: MEFOXIN 2 GM/NS 2 GM/50 ML IVPB IV SCH ×3 (01:38→14:04)
--- NOTE | 2019-01-21 05:47 | GENERAL SURGERY PROGRESS NOTE ---
DATE: 01/21/2019 SUBJECTIVE: Patient seems to be doing okay. He says he has some gas pains, but otherwise is doing alright. OBJECTIVE: Vital Signs: Patient is currently afebrile. Vital signs stable. General: No acute distress. Cardiovascular: Regular rate and rhythm. Lungs: Grossly clear. Abdomen: Soft, appropriately tender. Some minimal distention. Bowel sounds auscultated. Incision is healing well. ASSESSMENT AND PLAN: A 58-year-old gentleman currently postoperative day #1 from a robotic- assisted sigmoid resection. Postoperative state. At this time, patient is doing well. Will put his diet to advance as tolerated. We will get him to mobilize. Plan on getting his Cooney catheter out tomorrow. Will continue to monitor him. cc: Jimbo Love MD
[2019-01-21] MEDS: PROTONIX PO SCH (06:11)
[2019-01-21] MEDS: HEPARIN SUBQ SCH ×3 (06:11→20:08)
[2019-01-21] MEDS ORDERED: PRILOSEC PO SCH (07:00)
[2019-01-21] MEDS: SYNTHROID PO SCH (10:44)
[2019-01-21] MEDS: PERIDEX MT SCH ×2 (10:44→20:08)
[2019-01-21] MEDS: GLUCOSAMINE 500 MG/CHONDROITIN 400 MG PO SCH (10:44)
[2019-01-21] MEDS: ENTEREG PO SCH ×2 (10:44→20:08)
[2019-01-21] MEDS: PRINZIDE 10/12.5MG PO SCH (10:44)
[2019-01-21] MEDS: LIPITOR PO SCH (10:44)
[2019-01-21] MEDS: ULTRAM PO PRN (21:32)
[2019-01-22] MEDS: ULTRAM PO PRN ×2 (02:16→09:11)
[2019-01-22] MEDS: HEPARIN SUBQ SCH (05:57)
[2019-01-22] MEDS: PROTONIX PO SCH ×2 (05:57→08:24)
[2019-01-22 07:21] VITALS: BP 118/77
[2019-01-22] MEDS: PERIDEX MT SCH (08:30)
[2019-01-22] MEDS: GLUCOSAMINE 500 MG/CHONDROITIN 400 MG PO SCH (08:30)
[2019-01-22] MEDS: ENTEREG PO SCH (08:30)
[2019-01-22] MEDS: SYNTHROID PO SCH (08:30)
[2019-01-22] MEDS: LIPITOR PO SCH (08:31)
[2019-01-22] MEDS: PRINZIDE 10/12.5MG PO SCH (08:31)
--- NOTE | 2019-01-22 10:50 | GENERAL SURGERY PROGRESS NOTE ---
DATE: 01/22/2019 SUBJECTIVE: The patient is doing well. No severe abdominal pain, nausea, or vomiting. He is tolerating liquid and soft food. He is passing gas. He is ambulating and voiding. OBJECTIVE: Vital Signs: He is afebrile. Vital signs are stable. General: He is awake, alert, and oriented x4, in no acute distress. CV: Regular rate and rhythm. Respiratory: No work of breathing. GI: Soft, nondistended, appropriately tender. Incisions are clean, dry, and intact, and he does have bowel sounds. ASSESSMENT AND PLAN: A 58-year-old male, postoperative day 2 robotic low anterior resection. He is doing quite well at this point. We will discharge him home. Instructions were given. He will follow up in a week and a half by Dr. Love. cc: MD Jimbo Dotson MD
== END 2019-01-22 11:32 | disposition home or self-care (01) | DRG 331 ==
LOC: SURHOLD 09:12 → 4N 14:40
PROVIDERS: ADMIT Surgery; ATTEND Surgery
CPT/HCPCS: 80048; 81001; 85025; 88307; 93005; 93010; 94760; 94799; A9270; C9290; J0131; J0330; J0694; J1100; J1170; J1644; J2250; J2405; J3010; J3480; J7120; S0020; S2900